=== PATIENT | male | born 1980 | race Caucasian/White ===

== ENCOUNTER 2019-05-05 09:29 | Emergency (ER) | payer SELFPAY ==
--- NOTE | 2019-05-05 10:19 | PHYS DOC ---
Past History Past Medical History: Other Past Surgical History: Other Additional Smoking Information: <1 pk/day Alcohol Use: Occasionally Additional Alcohol Information: hx of ETOH abuse Drug Use: Methamphetamine Social History Narrative: last used 2 days ago Adult General Chief Complaint Chief Complaint: NAUSEA/VOMITING/DIARRHEA [facility] HPI Patient is a 38 yo m symptom onset after smoking meth n/v/d, 2 episodes of nausea and vomiting intermittent diarrhea left lower quadrant pain sharp in nature and dull as well two days urinry hesitancy denies dysuria no hx of kidney stones feverish subjective the last coupole of days, also has a headache. 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 does have intermittent twitching Review of Systems Review of Systems Constitutional: Denies fever or chills [] Eyes: Denies change in visual acuity, redness, or eye pain [] HENT: Denies nasal congestion or sore throat [] Respiratory: Denies cough or shortness of breath [] Cardiovascular: No additional information not addressed in HPI [] GI: Denies abdominal pain, nausea, vomiting, bloody stools or diarrhea [] : Denies dysuria or hematuria [] Musculoskeletal: Denies back pain or joint pain [] Integument: Denies rash or skin lesions [] Neurologic: Denies headache, focal weakness or sensory changes [] Endocrine: Denies polyuria or polydipsia [] All other systems were reviewed and found to be within normal limits, except as documented in this note. Allergies Allergies Allergies Coded Allergies Type Severity Reaction Last Updated Verified No Known Drug Allergies 05/05/19 No Physical Exam Physical Exam Constitutional: Well developed, well nourished, no acute distress, non-toxic appearance. [] HENT: Normocephalic, atraumatic, bilateral external ears normal, oropharynx moist, no oral exudates, nose normal. [] Eyes: PERRLA, EOMI, conjunctiva normal, no discharge. [] Neck: Normal range of motion, no tenderness, supple, no stridor. [] Cardiovascular:Heart rate regular rhythm, no murmur [] Lungs & Thorax: Bilateral breath sounds clear to auscultation [] Abdomen: Bowel sounds normal, soft, mild nonspeciifc ttp noted. Skin: Warm, dry, no erythema, no rash. [] Back: No tenderness, no CVA tenderness. [] Extremities: No tenderness, no cyanosis, no clubbing, ROM intact, no edema. [] Neurologic: Alert and oriented X 3, normal motor function, normal sensory function, no focal deficits noted. [] Psychologic: Affect normal, judgement normal, mood normal. [] Current Patient Data Vital Signs Vital Signs Date Time Temp Pulse Resp B/P (MAP) Pulse Ox O2 Delivery O2 Flow Rate FiO2 05/05/19 09:30 98.3 81 18 97 Room Air EKG EKG Normal sinus rhythm rate is 62 no acute ischemic changes noted no STEMI interpreted by me the time of encounter[] Radiology/Procedures Radiology/Procedures [] Impressions: Chest x-ray negative acute Course & Med Decision Making Course & Med Decision Making Pertinent Labs and Imaging studies reviewed. (See chart for details) []n/v/d body aches ddx uti, rhabdo meth effect Labs and CT essentially normal patient discharged with diagnosis of likely dehydration. Dragon Disclaimer Dragon Disclaimer This electronic medical record was generated, in whole or in part, using a voice recognition dictation system. Departure Departure: Impression: Primary Impression: Dehydration Disposition: HOME, SELF-CARE Condition: STABLE Referrals: PCP,NO (PCP) CYNTHIA WATSON MD May 05, 2019 10:19
[2019-05-05] MEDS ORDERED: IV NORMAL SALINE 1,000ML 1,000 ML IV ONE (10:30)
[2019-05-05 10:56] LABS: BASO % 1 % (0-3); EOS # 0.2 x10^3/uL (0.0-0.7); EOS % 3 % (0-3); HEMATOCRIT 40.9 % (39.0-53.0); HEMOGLOBIN 13.4 g/dL (13.0-17.5); LYMPH # 1.1 x10^3/uL (1.0-4.8); LYMPH % 24 % (24-48); MEAN CORPUSCULAR HEMOGLOBIN 29 pg (25-35); MEAN CORPUSCULAR HGB CONC 33 g/dL (31-37); MEAN CORPUSCULAR VOLUME 87 fL (79-100); MONO # 0.3 x10^3/uL (0.0-1.1); MONO % 6 % (0-9); NEUT # 3.1 x10^3uL (1.8-7.7); NEUT % 66 % (31-73); PLATELET COUNT 260 x10^3/uL (140-400); RED BLOOD COUNT 4.67 x10^6/uL (4.30-5.70); RED CELL DISTRIBUTION WIDTH 13.6 % (11.5-14.5); WHITE BLOOD COUNT 4.6 x10^3/uL (4.0-11.0)
--- NOTE | 2019-05-05 10:58 | EKG ---
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
--- NOTE | 2019-05-05 10:59 | RAD ---
PROCEDURE: CHEST AP ONLY CLINICAL INDICATION: . Chest pain. COMPARISON: None FINDINGS: No pneumothorax identified. Cardiac and mediastinal contours unremarkable. No pulmonary consolidation or acute airspace disease. No acute osseous abnormalities identified. IMPRESSION: No pulmonary consolidation or acute airspace disease. Electronically signed by: Nathanael Aponte DO (05/05/2019 10:56 AM) [facility]
[2019-05-05 11:09] LABS: ALBUMIN 3.6 g/dL (3.4-5.0); ALBUMIN/GLOBULIN RATIO 1.1 (1.0-1.7); CALCIUM 8.8 mg/dL (8.5-10.1); CREATININE 0.8 mg/dL (0.7-1.3); GFR 108.8; POTASSIUM 4.1 mmol/L (3.5-5.1); TOTAL BILIRUBIN 0.3 mg/dL (0.2-1.0); TOTAL PROTEIN 6.9 g/dL (6.4-8.2)
[2019-05-05] MEDS ORDERED: IOHEXOL 300 MG/ML 75 ML VIAL. IV ONE (11:30)
[2019-05-05 11:33] LABS: AMPHETAMINE/METHAMPHETAMINE POS (NEG); BARBITURATES NEG (NEG); BENZODIAZEPINES NEG (NEG); CANNABINOIDS NEG (NEG); COCAINE NEG (NEG); METHADONE NEG (NEG); OPIATES NEG (NEG); PHENCYCLIDINE NEG (NEG)
[2019-05-05 11:34] LABS: BACTERIA,URINE 0 /HPF (0-FEW); BILIRUBIN,URINE NEG (NEG); CLARITY,URINE CLEAR; COLOR,URINE YELLOW; GLUCOSE,URINE NEG (NEG); NITRITE,URINE NEG (NEG); RBC,URINE OCC /HPF (0-2); SQUAMOUS EPITHELIAL CELL,UR OCC /LPF; UROBILINOGEN,URINE 0.2 mg/dL (0.2 mg/dL); WBC,URINE OCC /HPF (0-4)
--- NOTE | 2019-05-05 11:47 | RAD ---
PQRS Compliance statement: One or more of the following individualized dose reduction techniques were utilized for this examination: 1. Automated exposure control. 2. Adjustment of the mA and/or kV according to patient size. 3. Use of iterative reconstruction technique. Indication:Left lower quadrant pain. TECHNIQUE: CT abdomen and pelvis with IV contrast with multiplanar reformats. COMPARISON: None FINDINGS: Heart is normal in size. No pericardial or pleural effusion. Clear lung bases. Liver, spleen, gallbladder, pancreas, adrenals and kidneys are within normal limits. No enlarged retroperitoneal or pelvic adenopathy. No free pelvic fluid or ascites. No bowel obstruction. Few sigmoid colonic diverticuli seen. Normal appendix. The prostate and seminal vesicles show no large mass. Urinary bladder is within normal limits. No pneumoperitoneum. No suspicious bony lesion. IMPRESSION: No evidence of diverticulitis. No bowel obstruction. No nephrolithiasis. Electronically signed by: Nathanael Aponte DO (05/05/2019 11:44 AM) [facility]
[2019-05-05 11:55] VITALS: BP 156/96
== END 2019-05-05 11:55 | disposition home or self-care (01) ==
LOC: ER 09:29
DX: E86.0 Dehydration (principal); R51 Headache; F17.200 Nicotine dependence, unspecified, uncomplicated
CPT/HCPCS: 36415; 71045; 74177; 80053; 80307; 81001; 82550; 83690; 84484; 85025; 93005; 96360; 99285; Q9967; J7030

== ENCOUNTER 2019-05-11 01:36 | Emergency (ER) | payer SELFPAY ==
[~2019-05-11] VITALS: Ht 180.3 cm; Wt 70.3 kg
--- NOTE | 2019-05-11 02:20 | PHYS DOC ---
Past History Past Medical History: Other Past Surgical History: Other Alcohol Use: None Drug Use: Methamphetamine Adult General Chief Complaint Chief Complaint: HEADACHE HPI HPI Patient is a 38-year-old male who presents with numerous complaints to include headache, diffuse body aches, back pain and neck pain for the last several days. Patient had been seen here about a week ago with complaints of nausea and vomiting and was diagnosed with dehydration. Patient states that his symptoms just aren't getting better and the body aches are getting worse. Patient's indicates that couple of months ago patient had a tick bite and she noticed a rash on his back at that time but didn't think anything about it. She states since patient's last visit she has been Google searching his symptoms and found that the rash on his back with similar to erythema migrans. She is concerned that he may have Lyme disease. She also indicates that he has a cardiac history and is concerned about that as well.[] Review of Systems Review of Systems Constitutional: Denies fever or chills [] Respiratory: Reports intermittent shortness of breath [] Cardiovascular: No additional information not addressed in HPI [] GI: Denies abdominal pain, nausea, vomiting or diarrhea [] Musculoskeletal: Complains of diffuse body aches and back pain [] Integument: Reports history of rash similar to erythema migrans, approximately 2 months ago[] Neurologic: Complains of headache without focal weakness or sensory changes [] All other systems were reviewed and found to be within normal limits, except as documented in this note. Allergies Allergies Allergies Coded Allergies Type Severity Reaction Last Updated Verified No Known Drug Allergies 05/05/19 No Physical Exam Physical Exam Constitutional: Well developed, well nourished, no acute distress, non-toxic appearance. [] HENT: Normocephalic, atraumatic, bilateral external ears normal, oropharynx moist, no oral exudates, nose normal. [] Eyes: PERRLA, EOMI, conjunctiva normal, no discharge. [] Neck: Normal range of motion, no tenderness, supple, no stridor. [] Cardiovascular:Heart rate regular rhythm, no murmur [] Lungs & Thorax: Bilateral breath sounds clear to auscultation [] Abdomen: Bowel sounds normal, soft, no tenderness. [] Skin: Warm, dry, no erythema, no rash. [] Extremities: No tenderness, no cyanosis, no clubbing, ROM intact, no edema. [] Neurologic: Alert and oriented X 3, no focal deficits noted. [] Current Patient Data Vital Signs Vital Signs Date Time Temp Pulse Resp B/P (MAP) Pulse Ox O2 Delivery O2 Flow Rate FiO2 05/11/19 01:40 98.5 92 20 100 Room Air EKG EKG [] Radiology/Procedures Radiology/Procedures [] Course & Med Decision Making Course & Med Decision Making Pertinent Labs and Imaging studies reviewed. (See chart for details) [] Dragon Disclaimer Dragon Disclaimer This electronic medical record was generated, in whole or in part, using a voice recognition dictation system. Departure Departure: Impression: Primary Impression: Myalgia, unspecified site Additional Impressions: Dehydration Tick bite of back Methamphetamine abuse Disposition: HOME, SELF-CARE Condition: STABLE Referrals: PCP,NO (PCP) Patient Instructions: [place] Tick Bite, Dehydration, Adult, Myalgia, Adult Scripts Tramadol Hcl (TRAMADOL HCL) 50 Mg Tablet 50 MG PO PRN Q6HRS PRN for PAIN, #12 TAB Prov: HEATHER VARGAS Jr. DO 05/11/19 Doxycycline Monohydrate (DOXYCYCLINE MONOHYDRATE) 100 Mg Capsule 1 CAP PO BID for possible Lyme disease, #42 CAP Prov: HEATHER VARGAS Jr. DO 05/11/19 Problem Qualifiers Additional Impressions: Tick bite of back Encounter type: initial encounter Qualified Codes: S30.860A - Insect bite (nonvenomous) of lower back and pelvis, initial encounter; W57.XXXA - Bitten or stung by nonvenomous insect and other nonvenomous arthropods, initial encounter HEATHER VARGAS Jr. DO May 11, 2019 02:20
[2019-05-11] MEDS ORDERED: IV NORMAL SALINE 1,000ML 1,000 ML IV ONE (02:30)
[2019-05-11] MEDS ORDERED: IV NORMAL SALINE 100ML 100 ML ONE (02:30)
[2019-05-11 02:43] LABS: BARBITURATES NEG (NEG); BENZODIAZEPINES NEG (NEG); CANNABINOIDS NEG (NEG); COCAINE NEG (NEG); METHADONE NEG (NEG); OPIATES NEG (NEG); PHENCYCLIDINE NEG (NEG)
[2019-05-11 02:44] LABS: AMPHETAMINE/METHAMPHETAMINE POS (NEG)
[2019-05-11 02:50] LABS: BACTERIA,URINE 0 /HPF (0-FEW); BILIRUBIN,URINE NEG (NEG); CLARITY,URINE CLEAR; COLOR,URINE YELLOW; GLUCOSE,URINE NEG (NEG); NITRITE,URINE NEG (NEG); RBC,URINE RARE /HPF (0-2); UROBILINOGEN,URINE 0.2 mg/dL (0.2 mg/dL); WBC,URINE RARE /HPF (0-4)
[2019-05-11 02:50] LABS: BASO % 1 % (0-3); EOS # 0.2 x10^3/uL (0.0-0.7); EOS % 3 % (0-3); HEMOGLOBIN 13.3 g/dL (13.0-17.5); LYMPH # 1.2 x10^3/uL (1.0-4.8); LYMPH % 22 % (24-48); MEAN CORPUSCULAR HEMOGLOBIN 29 pg (25-35); MEAN CORPUSCULAR HGB CONC 33 g/dL (31-37); MEAN CORPUSCULAR VOLUME 87 fL (79-100); MONO # 0.5 x10^3/uL (0.0-1.1); MONO % 9 % (0-9); NEUT # 3.7 x10^3uL (1.8-7.7); NEUT % 65 % (31-73); PLATELET COUNT 275 x10^3/uL (140-400); RED BLOOD COUNT 4.58 x10^6/uL (4.30-5.70); RED CELL DISTRIBUTION WIDTH 13.2 % (11.5-14.5); WHITE BLOOD COUNT 5.7 x10^3/uL (4.0-11.0)
[2019-05-11 02:51] LABS: ALBUMIN 4.3 g/dL (3.4-5.0); ALBUMIN/GLOBULIN RATIO 1.2 (1.0-1.7); CALCIUM 9.2 mg/dL (8.5-10.1); CREATININE 0.9 mg/dL (0.7-1.3); POTASSIUM 3.8 mmol/L (3.5-5.1); TOTAL BILIRUBIN 0.3 mg/dL (0.2-1.0); TOTAL PROTEIN 7.8 g/dL (6.4-8.2)
[2019-05-11] MEDS ORDERED: DOXY100C14 PO (03:12)
[2019-05-11] MEDS ORDERED: TRAM50TA PO (03:16)
[2019-05-11 03:42] VITALS: BP 133/87
--- NOTE | 2019-05-11 12:56 | EKG ---
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
== END 2019-05-11 03:45 | disposition home or self-care (01) ==
LOC: ER 01:36
DX: S30.860A Insect bite (nonvenomous) of lower back and pelvis, initial encounter (principal); E86.0 Dehydration; F15.10 Other stimulant abuse, uncomplicated; M79.10 Myalgia, unspecified site; M54.2 Cervicalgia; W57.XXXA Bitten or stung by nonvenomous insect and other nonvenomous arthropods, initial encounter; Y93.89 Activity, other specified; Y92.89 Other specified places as the place of occurrence of the external cause; Y99.8 Other external cause status
CPT/HCPCS: 36415; 80053; 80307; 81001; 82550; 85025; 86617; 86618; 93005; 96365; 99285; J0696; J7030

== ENCOUNTER 2019-12-23 15:56 | Emergency (ER) | payer SELFPAY ==
[~2019-12-23] VITALS: Ht 180.3 cm; Wt 69.6 kg
[~2019-12-23 15:56] MED LIST: DOXY100C14 PO; TRAM50TA PO
[2019-12-23] MEDS ORDERED: DEXAMETHASONE 4 MG TABLET PO ONE (16:30)
--- NOTE | 2019-12-23 16:30 | RAD ---
CHEST PA LATERAL History: Fever, cough, chills Comparison: May 05, 2019 Findings: 2 views of the chest are submitted. There is no infiltrate, pneumothorax, or effusion. Pericardial cardiac silhouette is within normal limits in size. Impression: 1. There is no radiographic evidence of acute cardiopulmonary disease. Electronically signed by: Daniel Bradshaw MD (12/23/2019 4:27 PM) [id number]
--- NOTE | 2019-12-23 16:53 | PHYS DOC ---
Past History Past Medical History: Other Past Surgical History: Other Alcohol Use: None Drug Use: Methamphetamine Adult General Chief Complaint Chief Complaint: FLU SYMPTOM HPI HPI 39-year-old male presents with URI-type symptoms 3 days. Reports nasal congestion. Denies known sick contacts. Review of Systems Review of Systems Constitutional: Reports subjective fever and chills Eyes: Denies change in visual acuity, or eye pain HENT: Reports nasal congestion and sore throat Respiratory: Reports cough; denies shortness of breath Cardiovascular: Denies chest pain or palpitations GI: Denies abdominal pain, nausea, or vomiting : Denies dysuria or hematuria Musculoskeletal: Denies back pain or joint pain Integument: Denies rash or skin lesions Neurologic: Denies headache, focal weakness or sensory changes Complete systems were reviewed and found to be within normal limits, except as documented in this note. Current Medications Current Medications Current Medications Medications (Trade) Dose Ordered Sig/Emily Start Time Stop Time Status Last Admin Dose Admin Dexamethasone (Decadron) 10 mg 1X ONCE 12/23/19 16:30 12/23/19 16:31 DC Allergies Allergies Allergies Coded Allergies Type Severity Reaction Last Updated Verified No Known Drug Allergies 05/05/19 No Physical Exam Physical Exam Constitutional: Well developed, well nourished, no acute distress, non-toxic appearance HENT: Normocephalic, atraumatic, oropharynx moist, nasal congestion noted, TMs clear Eyes: Conjunctiva normal, no discharge Neck: Normal range of motion, no tenderness, supple, no meningeal signs Cardiovascular: Heart rate normal, regular rhythm Lungs & Thorax: Bilateral breath sounds clear to auscultation, no wheezes Skin: Warm, dry, no erythema Extremities: No tenderness, ROM intact, no edema Neurologic: Alert and oriented X 3, no focal deficits noted Psychologic: Affect normal, judgement normal EKG EKG [] Radiology/Procedures Radiology/Procedures PROCEDURE: CHEST PA & LATERAL CHEST PA LATERAL History: Fever, cough, chills Comparison: May 05, 2019 Findings: 2 views of the chest are submitted. There is no infiltrate, pneumothorax, or effusion. Pericardial cardiac silhouette is within normal limits in size. Impression: 1. There is no radiographic evidence of acute cardiopulmonary disease. Electronically signed by: Daniel Bradshaw MD (12/23/2019 4:27 PM) [id number] Course & Med Decision Making Course & Med Decision Making Pertinent Labs and Imaging studies reviewed. (See chart for details) Patient presents with history of present illness and physical exam consistent for viral syndrome. Rapid influenza negative. Chest x-ray without acute proces s. Symptomatic treatment provided. Patient stable for discharge with outpatient follow-up with PCP. Discussed findings and plan with patient, who acknowledges understanding and agreement. Dragon Disclaimer Dragon Disclaimer This electronic medical record was generated, in whole or in part, using a voice recognition dictation system. Departure Departure: Impression: Primary Impression: Viral syndrome Disposition: HOME, SELF-CARE Condition: STABLE Referrals: PCP,NO (PCP) Patient Instructions: Viral Syndrome Scripts Prednisone (PREDNISONE) 20 Mg Tablet 2 TAB PO DAILY for URI, #8 TAB Start this prescription tomorrow, 12/24/2019 Prov: DUANE PORTILLO DO 12/23/19 DUANE PORTILLO DO Dec 23, 2019 16:53
[2019-12-23 17:15] LABS: INFLUENZA A PATIENT NEGATIVE (NEGATIVE); INFLUENZA B PATIENT NEGATIVE (NEGATIVE)
[2019-12-23] MEDS ORDERED: PRED20TA PO (17:23)
== END 2019-12-23 17:40 | disposition home or self-care (01) ==
LOC: ER 15:56
DX: B34.9 Viral infection, unspecified (principal)
CPT/HCPCS: 71046; 87804; 99284; J8540

== ENCOUNTER 2020-06-29 07:20 | Emergency (ER) | payer SELFPAY ==
[~2020-06-29] VITALS: Ht 180.3 cm; Wt 73.0 kg
[~2020-06-29 07:20] MED LIST changes: +PRED20TA PO
[2020-06-29] MEDS ORDERED: KETOROLAC 15 MG/ML VIAL. IVP ONE (07:30)
[2020-06-29] MEDS ORDERED: IV NORMAL SALINE 1,000ML 1,000 ML IV ONE (07:30)
[2020-06-29 07:41] LABS: BASO % 1 % (0-3); EOS # 0.2 x10^3/uL (0.0-0.7); EOS % 3 % (0-3); HEMATOCRIT 42.8 % (39.0-53.0); HEMOGLOBIN 14.3 g/dL (13.0-17.5); LYMPH # 1.6 x10^3/uL (1.0-4.8); LYMPH % 28 % (24-48); MEAN CORPUSCULAR HEMOGLOBIN 29 pg (25-35); MEAN CORPUSCULAR HGB CONC 34 g/dL (31-37); MEAN CORPUSCULAR VOLUME 88 fL (79-100); MONO # 0.5 x10^3/uL (0.0-1.1); MONO % 9 % (0-9); NEUT # 3.5 x10^3uL (1.8-7.7); NEUT % 60 % (31-73); PLATELET COUNT 292 x10^3/uL (140-400); RED BLOOD COUNT 4.87 x10^6/uL (4.30-5.70); RED CELL DISTRIBUTION WIDTH 13.8 % (11.5-14.5); WHITE BLOOD COUNT 5.8 x10^3/uL (4.0-11.0)
[2020-06-29 07:52] LABS: CALCIUM 9.5 mg/dL (8.5-10.1); CREATININE 1.2 mg/dL (0.7-1.3); GFR 67.8; POTASSIUM 4.2 mmol/L (3.5-5.1)
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
[2020-06-29 08:09] LABS: ALBUMIN 4.3 g/dL (3.4-5.0); ALBUMIN/GLOBULIN RATIO 1.2 (1.0-1.7); MAGNESIUM 2.1 mg/dL (1.8-2.4); TOTAL BILIRUBIN 0.3 mg/dL (0.2-1.0); TOTAL PROTEIN 7.8 g/dL (6.4-8.2)
--- NOTE | 2020-06-29 08:11 | RAD ---
INDICATION: Reason: SOA, chest pain / Spl. Instructions: / History: COMPARISON: December 23, 2019 FINDINGS: Single view of chest obtained. Cardiac silhouette is unremarkable. No focal airspace consolidation. No evidence of pulmonary edema. IMPRESSION: * No focal airspace consolidation or edema. Electronically signed by: Timothy Hernandez MD (06/29/2020 8:08 AM) [id number]
[2020-06-29 08:25] VITALS: BP 159/110
--- NOTE | 2020-06-29 14:41 | EKG ---
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
== END 2020-06-29 08:30 | disposition home or self-care (01) ==
LOC: ER 07:20
DX: R07.89 Other chest pain (principal); F15.10 Other stimulant abuse, uncomplicated; F16.10 Hallucinogen abuse, uncomplicated; G89.29 Other chronic pain; M54.2 Cervicalgia; F41.9 Anxiety disorder, unspecified; F17.210 Nicotine dependence, cigarettes, uncomplicated
CPT/HCPCS: 36415; 71045; 80053; 82553; 83690; 83735; 83880; 84484; 85025; 93005; 96360; 99285; J7030

== ENCOUNTER → 2021-03-06 | Emergency (ER) | payer SELFPAY ==
[~2021-03-06] VITALS: Ht 180.3 cm; Wt 78.2 kg
[~2021-03-06] MED LIST changes: +AMOX1TAB61 PO; +AMOXICILLIN/K CLAV 875/125MG TABLET. PO ONE
[2021-03-06 23:50] VITALS: BP 145/87
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
== END | disposition home or self-care (01) ==
LOC: ER 23:26
DX: L03.115 Cellulitis of right lower limb (principal); F41.9 Anxiety disorder, unspecified; F17.210 Nicotine dependence, cigarettes, uncomplicated
CPT/HCPCS: 99283

== ENCOUNTER 2021-05-11 07:59 | Emergency (ER) | payer SELFPAY ==
[~2021-05-11] VITALS: Ht 180.3 cm; Wt 78.2 kg
[~2021-05-11 07:59] MED LIST changes: -AMOXICILLIN/K CLAV 875/125MG TABLET. PO ONE; +DOXY-181 PO; -DOXY100C14 PO
[2021-05-11 08:15] VITALS: BP 130/84
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
[2021-05-11] MEDS ORDERED: NEOMY/BACITR/POLYMYXIN OINT PACKET. TP ONE (08:45)
--- NOTE | 2021-05-11 08:45 | RAD ---
Three-view right hand radiographs 05/11/2021 CLINICAL HISTORY: Crush injury to the right hand. PA, lateral and oblique digital radiographs of right hand were obtained. No acute fracture or disloca tion right hand is seen. No radiopaque foreign body is noted. IMPRESSION: No acute fracture or dislocation of the right hand is seen. Electronically signed by: Donaldo Spears MD (05/11/2021 8:43 AM) [id number]
== END 2021-05-11 09:11 | disposition home or self-care (01) ==
LOC: ER 07:59
DX: S67.192A Crushing injury of right middle finger, initial encounter (principal); S67.194A Crushing injury of right ring finger, initial encounter; S67.21XA Crushing injury of right hand, initial encounter; F41.9 Anxiety disorder, unspecified; F17.210 Nicotine dependence, cigarettes, uncomplicated; W22.8XXA Striking against or struck by other objects, initial encounter; Y93.89 Activity, other specified; Y92.89 Other specified places as the place of occurrence of the external cause; Y99.8 Other external cause status
CPT/HCPCS: 73130; 99283

== ENCOUNTER 2021-07-18 03:34 | Emergency (ER) | payer SELFPAY ==
[~2021-07-18] VITALS: Ht 180.3 cm; Wt 77.9 kg
[2021-07-18] MEDS ORDERED: ORPH-16 PO (04:08)
[2021-07-18] MEDS ORDERED: IBUP-571 PO (04:08)
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
[2021-07-18] MEDS ORDERED: IBUPROFEN 600 MG TABLET. PO ONE (04:15)
[2021-07-18 04:17] VITALS: BP 138/90
== END 2021-07-18 04:19 | disposition home or self-care (01) ==
LOC: ER 03:34
DX: M54.12 Radiculopathy, cervical region (principal); F17.210 Nicotine dependence, cigarettes, uncomplicated; F15.10 Other stimulant abuse, uncomplicated; F41.9 Anxiety disorder, unspecified
CPT/HCPCS: 99283

== ENCOUNTER 2022-01-19 01:11 | Emergency (ER) | payer SELFPAY ==
[~2022-01-19] VITALS: Ht 180.3 cm; Wt 75.4 kg
[~2022-01-19 01:11] MED LIST changes: +IBUP-571 PO; +ORPH-16 PO
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
[2022-01-19 01:14] VITALS: BP 128/90
[2022-01-19] MEDS ORDERED: ERYTHROMYCIN 0.5% OPHTH OINTMENT 1GM TUBE. OU ONE (01:15)
[2022-01-19] MEDS ORDERED: KETOROLAC TROMETHAMINE 0.5% OPHTH SOLUTION BOTTLE. OU ONE (01:15)
[2022-01-19] MEDS ORDERED: TETRACAINE 0.5% OPHTH SOLUTION 4ML BOTTLE. OU ONE (01:15)
[2022-01-19] MEDS ORDERED: FLUORESCEIN 1MG EYE STRIP. OU ONE (01:15)
[2022-01-19] MEDS ORDERED: CYCLOPENTOLATE 1% OPTH SOLUTION 2ML BOTTLE. OU ONE (01:30)
[2022-01-19] MEDS ORDERED: MORPHINE SULFATE 10 MG/ML SYRINGE. SQ ONE (01:30)
[2022-01-19] MEDS ORDERED: ACETAMINOPHEN 500 MG TABLET PO ONE ×2 (01:38→01:45)
[2022-01-19] MEDS ORDERED: DIPHTH,PERTUSS(ACELL),TET TOX 0.5 ML DISP.SYRIN. VAX IM ONE (01:45)
[2022-01-19] MEDS ORDERED: KETOROLAC 60 MG/2 ML VIAL. IM ONE (02:00)
== END 2022-01-19 02:17 | disposition home or self-care (01) ==
LOC: ER 01:11
DX: T26.12XA Burn of cornea and conjunctival sac, left eye, initial encounter (principal); T26.11XA Burn of cornea and conjunctival sac, right eye, initial encounter; L55.9 Sunburn, unspecified; G24.5 Blepharospasm; F17.210 Nicotine dependence, cigarettes, uncomplicated; X08.8XXA Exposure to other specified smoke, fire and flames, initial encounter; Y93.89 Activity, other specified; Y92.89 Other specified places as the place of occurrence of the external cause; Y99.8 Other external cause status
CPT/HCPCS: 90471; 90715; 96372; 99284; J1885; J2270